=== PATIENT | male | born 1950 | race Hispanic/Latino ===

== ENCOUNTER 2020-09-16 10:19 | Day surgery (SDC) | payer MEDICARE ==
[2020-09-15 10:33] LABS: BUN/Creatinine Ratio 21; Blood Urea Nitrogen 17 mg/dL (9-20); Calcium 9.9 mg/dL (8.4-10.2); Hematocrit 39.9 % (35.5-45.6); Hemoglobin 13.6 gm/dl (11.8-15.2); Hemolysis Index 10; Mean Corpuscular HGB Conc 34 % (32-34); Mean Corpuscular Volume 93 fl (84-94); Platelet Count 209 K/mm3 (140-440); Red Blood Count 4.29 M/mm3 (3.65-5.03); Red Cell Distribution Width 15.4 % (13.2-15.2)
--- NOTE | 2020-09-15 11:48 | Anesthesia Consultation ---
Anesthesia Consult and Med Hx Date of service: 09/16/20 - Airway Anesthetic Teeth Evaluation: Chipped (Has implant post) ROM Head & Neck: Adequate Mental/Hyoid Distance: Adequate Mallampati Class: Class II Intubation Access Assessment: Good - Pre-Operative Health Status ASA Pre-Surgery Classification: ASA3 Proposed Anesthetic Plan: General - Pre-Anesthesia Comment Pre-Anesthesia Comments: HIGH RISK FOR MH. USE NON-TRIGGERING ANESTHETIC - Pulmonary Hx Smoking: No Hx Respiratory Symptoms: No (+2FS) SOB: Yes Hx Sleep Apnea: No (INGRID PRE SCREEN HIGH RISK) - Cardiovascular System Hx Hypertension: Yes (SINCE AGE 29 YRS) - Central Nervous System Hx Neuromuscular Disorder: Yes (Central cord disease) - Gastrointestinal Hx Gastroesophageal Reflux Disease: No - Other Systems Hx Alcohol Use: Yes (2-3 GLASSES WINE QD) Hx Cancer: No - Additional Comments Anesthesia Medical History Comments: AI mixed connective tissue disease. muscle fatigue
[~2020-09-16 10:19] MED LIST: LACTATED RINGERS 1,000 ML IV SCH; MIDAZOLAM 2 MG/2 ML INJ IV NR
[2020-09-16] MEDS ORDERED: ceFAZolin/Water 2 GM/20 ML 2 GM/20 ML SYRINGE IV NR (11:00)
--- NOTE | 2020-09-16 11:20 | Anesthesia Day of Surgery ---
Anesthesia Day of Surgery - Day of Surgery Patient Examined: Yes Patient H&P Reviewed: Yes Patient is NPO: Yes
[2020-09-16] MEDS ORDERED: HYDROmorphone 1 MG/1 ML INJ IV PRN ×2 (11:24)
[2020-09-16] MEDS ORDERED: ONDANSETRON 4 MG/2 ML INJ IV PRN (11:24)
[2020-09-16] MEDS ORDERED: SODIUM CHLORIDE 0.9% 500 ML 500 ML ONE ×2 (11:33→12:53)
[2020-09-16] MEDS ORDERED: SODIUM CHLORIDE 0.9% 500 ML IVPB IRRIGATION ONE (11:40)
[2020-09-16] MEDS ORDERED: ceFAZolin/Water 2 GM/20 ML 2 GM/20 ML SYRINGE IV ONE (11:40)
[2020-09-16] MEDS ORDERED: WATER FOR IRRIG STERILE 2000 ML IR ONE (11:40)
[2020-09-16] MEDS ORDERED: WATER FOR IRRIG STERILE 1,500 ML BOTTLE IR ONE (11:40)
[2020-09-16] MEDS ORDERED: GLYCOPYRROLATE 0.4 MG/2 ML INJ ONE (12:07)
[2020-09-16] MEDS ORDERED: propofoL 200 MG/20 ML VIAL IV ONE (12:07)
[2020-09-16] MEDS ORDERED: KETAMINE/STERILE WATER 50 MG/ML SYRINGE ONE (12:07)
[2020-09-16] MEDS ORDERED: KETOROLAC 30 MG/1 ML INJ ONE (12:11)
[2020-09-16] MEDS ORDERED: dexAMETHasone 20 MG/5 ML VIAL ONE (12:11)
[2020-09-16] MEDS ORDERED: ONDANSETRON 4 MG/2 ML INJ ONE (12:11)
[2020-09-16] MEDS ORDERED: LIDOCAINE 2% UROJECT 10 ML JELLY ONE (12:20)
--- NOTE | 2020-09-16 12:54 | Post Operative Note ---
Date of procedure: 09/16/20 Pre-op diagnosis: gordon erythema Post-op diagnosis: same Findings: min erythema mostly resolved Procedure: cysto rpg rezum bx Anesthesia: GETA Surgeon: ROME NATION Estimated blood loss: none Pathology: list (bladder) Specimen disposition: to lab Condition: stable Disposition: PACU
--- NOTE | 2020-09-16 12:55 | Discharge Summary ---
Short Stay Discharge Plan Activity: other (no straining ) Weight Bearing Status: Full Weight Bearing Diet: low fat, low cholesterol, low salt Durable Medical Equipment Needed Upon Discharge: other (home with [facility] x 5 days ) Follow up with: SINAN CORNELIUS MD [Primary Care Provider] - 7 Days ROME NATION MD [Staff Physician] - 09/21/20
--- NOTE | 2020-09-16 14:04 | Fluoroscopy Report ---
INTRAOPERATIVE FLUOROSCOPY: RETROGRADE UROGRAPHY INDICATION / CLINICAL INFORMATION: HEMATURIA,BPH. TECHNIQUE: Intraoperative spot images were obtained during the procedure. FINDINGS: Images show retrograde pyelogram See operative/procedure note by performing physician for full details. Fluoroscopy Time: 12 seconds. Fluoroscopy Images: 4. Signer Name: Jose Armando Raymond MD Signed: 09/16/2020 1:59 PM Workstation Name: [id number]
[2020-09-16 16:12] VITALS: BP 127/69
--- NOTE | 2020-09-16 16:42 | Operative Report ---
DATE OF SURGERY: 09/16/2020 PREOPERATIVE DIAGNOSIS: Bladder outlet obstruction. POSTOPERATIVE DIAGNOSIS: Bladder outlet obstruction. PROCEDURE: Cystoscopy, Rezum therapy. SURGEON: Juan Diego Cramer MD ANESTHESIA: MAC. FINDINGS: This is a gentleman with a large prostate. He now presents for Rezum. All risks and implications discussed. DESCRIPTION OF PROCEDURE: The patient was brought to the operating room and placed on the operating table. Following induction of anesthesia, placed in lithotomy position, prepped and draped in the usual sterile fashion. He was given MAC, cystourethroscopy and retrograde showed a delicate collecting system, good drainage. The Rezum instrument was easily placed and 2/6 on the left, 1 on the right were carried out. The patient tolerated the procedure well. No significant complications. No significant bleeding. An 18 coude easily placed. He was brought to recovery in stable condition. TID: [id number] RECEIPT: CHARITO/KUMAR
--- NOTE | 2020-09-16 17:10 | Post Anesthesia Evaluation ---
- Post Anesthesia Evaluation Patient Participated: Yes Airway Patent: Yes Stable Respiratory Function: Yes Nausea/Vomiting: No Temp > 96.8F: Yes Pain Manageable: Yes Adequeate Hydration: Yes Anesthesia Complications: No Block Receding Appropriately: Not Applicable Patient on Ventilator: No
== END 2020-09-16 14:10 | disposition home or self-care (01) ==
LOC: OR 10:19
PROVIDERS: ATTEND Urology
DX: N32.89 Other specified disorders of bladder (principal); Z20.822 Contact with and (suspected) exposure to COVID-19; E78.00 Pure hypercholesterolemia, unspecified; N40.0 Benign prostatic hyperplasia without lower urinary tract symptoms; M19.90 Unspecified osteoarthritis, unspecified site; Z79.899 Other long term (current) drug therapy; Z98.49 Cataract extraction status, unspecified eye; Z72.89 Other problems related to lifestyle; Z98.890 Other specified postprocedural states
CPT/HCPCS: 36415; 53854; 74420; 80048; 85027; A4217; J0690; J1100; J1885; J2250; J2405; J2704; J3490; J7040; J7120; Q9967; U0003; 88305; 88341; 88342